=== PATIENT | female | born 1985 | race Two or more races ===

== ENCOUNTER 2023-10-31 06:00 | Outpatient (CLI) | payer OTHER ==
[~2023-10-31] VITALS: Ht 157.5 cm; Wt 72.6 kg
[~2023-10-31 06:00] MED LIST: CAMILA0.35 MG
[2023-10-31 08:58] LABS: URINE APPEARANCE Clear; URINE BILIRRUBIN Negative (NEGATIVE); URINE BLOOD Small; URINE COLOR Yellow; URINE GLUCOSE Negative (NEGATIVE); URINE KETONE Negative (NEGATIVE); URINE LEUKOCYTE Negative; URINE NITRATE Negative; URINE PROTEIN Negative (NEGATIVE); URINE UROBILINOGEN 0.2 E.U./dl
[2023-10-31 08:59] LABS: URINE BACTERIA 30.2 uL (0.0-1933); URINE EPITHELIAL CELLS 6.3 uL (0.0-38.8); URINE RBC 10.8 uL (0.0-20.8)
[2023-10-31 09:03] LABS: URINE WBC 1.5 uL (0.0-23.2)
[2023-10-31 09:22] LABS: HEMATOCRIT 25.6 % (36.0-45.00); MEAN CORPUSCULAR HGB CONC 29.6 g/dl (32.0-36.0); PLATELET COUNT 234 K/uL (150-450); RED BLOOD COUNT 4.73 M/uL (4.00-6.00)
[2023-10-31 09:25] LABS: INR 1.05; PARTIAL THROMBOPLASTIN TIME 26.6 SECONDS (22.0-34.0); PROTHROMBIN TIME 11.4 SECONDS (9.0-11.5)
[2023-10-31 09:39] LABS: MEAN CELL VOLUME 54.2 fL (80.00-100.00); RED CELL DISTRIBUTION WIDTH 19.4 % (11.5-14.5)
[2023-10-31 09:40] LABS: HEMOGLOBIN 7.6 g/dL (12.0-15.00)
[2023-10-31 09:41] VITALS: BP 110/71
[2023-10-31 09:41] LABS: BILIRUBIN TOTAL 0.54 mg/dL (0.3-1.2); CREATININE SERUM 0.75 mg/dL (0.55-1.02); GFR 86.95; GLOBULINA 3.7 G/DL (2.4-3.5); POTASSIUM 3.97 mEq/L (3.5-5.1); TOTAL PROTEIN 7.7 gm/dL (6.4-8.2)
[2023-10-31] MEDS ORDERED: MEGESTROL ACETA40 MG PO (09:41)
[2023-10-31 12:04] LABS: COL EPI 138 SECONDS (82-175)
[2023-11-02] MEDS ORDERED: POVIDONE-IODINE 118 ML BOTT TOP ONE (07:31)
== END 2023-10-31 06:10 | disposition home or self-care (01) ==
LOC: LAB 06:00 → CIR.AMB 11-03 07:54 → EDSTATUS 11-03 12:00 → CIR.AMB 11-03 12:00
PROVIDERS: Internal Medicine Infectious Disease; ATTEND Obstetrics & Gynecology
DX: N93.9 Abnormal uterine and vaginal bleeding, unspecified (principal); Z01.818 Encounter for other preprocedural examination

== ENCOUNTER 2023-10-31 14:37 | Inpatient (IN) | payer OTHER ==
[~2023-10-31] VITALS: Ht 157.5 cm; Wt 74.8 kg
[~2023-10-31 14:37] MED LIST changes: +MEGESTROL ACETA40 MG PO
--- NOTE | 2023-10-31 15:32 | NUR ---
PACIENTE ALERTA Y ORIENTADA X3 REFERIDA POR DR. JAIME. PACIENTE REFIERE SANGRADO VAGINAL SRINI DESDE HACE 3 MESES. PACIENTE VIENE A ABEBA DE EMERGENCIAS CON UN RESULTADO DE HGB DE 7.6. AL MOMENTO DE TRIAGE PACIENTE NO REFIERE SINTOMAS DE DEBILIDAD, MAREOS O DOLOR DE AZIZA. SE LYNDSAY S/V Y SE UBICA.
[2023-10-31] MEDS ORDERED: 0.9 % SODIUM CHLORIDE 500 ML IV ONE (16:30)
[2023-10-31] MEDS ORDERED: FAMOTIDINE/PF 20 MG/2 ML VIAL IV ONE (16:30)
[2023-10-31] MEDS ORDERED: METHYLPREDNISOLONE SOD SUCC 125 MG VIAL IV SCH (16:30)
[2023-10-31] MEDS ORDERED: DIPHENHYDRAMINE HCL 50 MG/ML VIAL 1ML IV SCH (16:30)
[2023-10-31] MEDS ORDERED: DIPHENHYDRAMINE HCL 50 MG/ML VIAL 1ML ONE (16:33)
[2023-10-31] MEDS ORDERED: FAMOTIDINE/PF 20 MG/2 ML VIAL ONE (16:33)
[2023-10-31] MEDS ORDERED: METHYLPREDNISOLONE SOD SUCC 125 MG VIAL ONE (16:33)
[2023-11-02 02:43] LABS: HEMATOCRIT 35.8 % (36.0-45.00); HEMOGLOBIN 11.2 g/dL (12.0-15.00); MEAN CORPUSCULAR HEMOGLOBIN 19.8 pg (27.00-32.0); MEAN CORPUSCULAR HGB CONC 31.1 g/dl (32.0-36.0); PLATELET COUNT 256 K/uL (150-450); RED BLOOD COUNT 5.64 M/uL (4.00-6.00)
[2023-11-02 03:06] LABS: MEAN CELL VOLUME 63.6 fL (80.00-100.00); RED CELL DISTRIBUTION WIDTH 29.4 % (11.5-14.5)
[2023-11-02] MEDS ORDERED: MORPHINE SULFATE 4 MG/ML VIAL IV ONE (09:35)
[2023-11-02] MEDS ORDERED: ONDANSETRON HCL 2 MG/ML VIAL ONE (09:43)
[2023-11-02] MEDS ORDERED: IBUprofen 800 MG TABLET PO SCH (12:00)
[2023-11-02] MEDS ORDERED: POLYETHYLENE GLYCOL 3350 17 GM BLIST.PACK PO SCH (21:00)
[2023-11-03 00:44] LABS: HEMOGLOBIN 10.5 g/dL (12.0-15.00); MEAN CELL VOLUME 64.6 fL (80.00-100.00); MEAN CORPUSCULAR HEMOGLOBIN 19.9 pg (27.00-32.0); MEAN CORPUSCULAR HGB CONC 30.8 g/dl (32.0-36.0); PLATELET COUNT 213 K/uL (150-450); RED BLOOD COUNT 5.26 M/uL (4.00-6.00); RED CELL DISTRIBUTION WIDTH 28.9 % (11.5-14.5)
[2023-11-03] MEDS ORDERED: POLY119PG PO (06:51)
[2023-11-03] MEDS ORDERED: IBUPROFEN800 MG PO (06:51)
== END 2023-11-03 09:29 | disposition home or self-care (01) | DRG 745 ==
LOC: ER 14:39 → OB/GYN 16:54
PROVIDERS: ADMIT Obstetrics & Gynecology; ATTEND Obstetrics & Gynecology
PROC: 30233N1 Transfusion of Nonautologous Red Blood Cells into Peripheral Vein, Percutaneous Approach (ICD-10-PCS; 2023-11-01)
PROC: 0UDB8ZZ Extraction of Endometrium, Via Natural or Artificial Opening Endoscopic (ICD-10-PCS; principal; 2023-11-02 07:00)
DX: N84.0 Polyp of corpus uteri (principal); D64.9 Anemia, unspecified; Z20.822 Contact with and (suspected) exposure to COVID-19

== ENCOUNTER 2023-11-21 08:28 | Inpatient (IN) | payer OTHER ==
[~2023-11-21] VITALS: Ht 157.5 cm; Wt 77.1 kg
[~2023-11-21 08:28] MED LIST changes: +IBUPROFEN800 MG PO; +POLY119PG PO
[2023-11-21] MEDS ORDERED: 0.9 % SODIUM CHLORIDE 1,000 ML IV STA (09:33)
[2023-11-21 10:31] LABS: PH,URINE 5.5 (5.0-8.0); URINE APPEARANCE Clear; URINE BILIRRUBIN Negative (NEGATIVE); URINE BLOOD Large; URINE COLOR Yellow; URINE GLUCOSE Negative (NEGATIVE); URINE KETONE Negative (NEGATIVE); URINE LEUKOCYTE Trace; URINE NITRATE Negative; URINE PROTEIN Negative (NEGATIVE)
[2023-11-21 10:32] LABS: URINE BACTERIA 47.8 uL (0.0-1933); URINE EPITHELIAL CELLS 9.8 uL (0.0-38.8); URINE RBC 260.7 uL (0.0-20.8); URINE WBC 8.4 uL (0.0-23.2)
[2023-11-21 10:40] LABS: URINE CAST 0.15 uL (0.0-1.40)
[2023-11-21 10:52] LABS: INR 1.07; PARTIAL THROMBOPLASTIN TIME 29.9 SECONDS (22.0-34.0); PROTHROMBIN TIME 11.6 SECONDS (9.0-11.5)
[2023-11-21 11:03] LABS: CREATININE SERUM 0.72 mg/dL (0.55-1.02); GFR 91.14; POTASSIUM 3.62 mEq/L (3.5-5.1)
[2023-11-21 11:24] LABS: HEMATOCRIT 34.7 % (36.0-45.00); MEAN CORPUSCULAR HGB CONC 31.6 g/dl (32.0-36.0); PLATELET COUNT 339 K/uL (150-450); RED BLOOD COUNT 5.23 M/uL (4.00-6.00)
[2023-11-21 11:28] LABS: MEAN CELL VOLUME 66.2 fL (80.00-100.00); RED CELL DISTRIBUTION WIDTH 31.6 % (11.5-14.5)
[2023-11-21 14:20] VITALS: BP 118/63
[2023-11-21 17:48] VITALS: BP 113/75
[2023-11-22 01:00] VITALS: BP 105/61
[2023-11-22 07:43] VITALS: BP 101/64
[2023-11-22] MEDS ORDERED: CEFOXITIN SODIUM 2,000 MG VIAL IV SCH (08:45)
[2023-11-22 14:32] VITALS: BP 110/57
[2023-11-22] MEDS ORDERED: SOD FERRIC GLUC COMPLX/SUCROSE 62.5 MG in 0.9 % SODIUM CHLORIDE 50 ML IV SCH (17:12)
[2023-11-22] MEDS ORDERED: FOLIC ACID 1 MG TABLET PO SCH (17:12)
[2023-11-22] MEDS ORDERED: FAMOtidine 20 MG TABLET PO SCH (17:12)
[2023-11-22] MEDS ORDERED: SOD FERRIC GLUC COMPLX/SUCROSE 62.5 MG/5 ML AMPUL IV ONE (19:00)
[2023-11-23 01:14] VITALS: BP 116/75
[2023-11-23] MEDS ORDERED: CEFOXITIN SODIUM 2,000 MG VIAL IV ONE ×3 (07:44→11:39)
[2023-11-23] MEDS ORDERED: CEFOXITIN SODIUM 2,000 MG in DEXTROSE 5 % IN WATER 100 ML IV SCH (12:00)
[2023-11-23] MEDS ORDERED: MEPERIDINE HCL/PF 50 MG/ML VIAL IV SCH (12:00)
[2023-11-23] MEDS ORDERED: PROMETHAZINE HCL 25 MG/ML AMPUL IV SCH (12:00)
[2023-11-23 12:12] VITALS: BP 124/80
[2023-11-23 12:18] VITALS: O2SAT 100
[2023-11-23 15:48] VITALS: BP 122/79
[2023-11-23 18:11] LABS: HEMATOCRIT 33.8 % (36.0-45.00); HEMOGLOBIN 10.4 g/dL (12.0-15.00); MEAN CORPUSCULAR HEMOGLOBIN 20.3 pg (27.00-32.0); MEAN CORPUSCULAR HGB CONC 30.9 g/dl (32.0-36.0); RED BLOOD COUNT 5.15 M/uL (4.00-6.00)
[2023-11-23 18:18] LABS: MEAN CELL VOLUME 65.6 fL (80.00-100.00); PLATELET COUNT 286 K/uL (150-450)
[2023-11-24 01:00] VITALS: BP 121/78
[2023-11-24] MEDS ORDERED: SIMETHICONE 125 MG CAPSULE PO SCH (05:00)
[2023-11-24] MEDS ORDERED: GABAPENTIN 300 MG CAPSULE PO SCH (05:00)
[2023-11-24] MEDS ORDERED: IBUprofen 800 MG TABLET PO SCH (06:00)
[2023-11-24 08:38] VITALS: BP 101/68
[2023-11-24] MEDS ORDERED: POLYETHYLENE GLYCOL 3350 17 GM BLIST.PACK PO SCH (09:00)
[2023-11-24 12:55] VITALS: BP 105/66
[2023-11-24 17:40] VITALS: BP 111/69
[2023-11-25] VITALS: BP 104/71
[2023-11-25 07:03] LABS: HEMATOCRIT 25.1 % (36.0-45.00); MEAN CORPUSCULAR HEMOGLOBIN 21.1 pg (27.00-32.0); MEAN CORPUSCULAR HGB CONC 31.9 g/dl (32.0-36.0); PLATELET COUNT 250 K/uL (150-450); RED BLOOD COUNT 3.78 M/uL (4.00-6.00); RED CELL DISTRIBUTION WIDTH 31.9 % (11.5-14.5)
[2023-11-25 07:04] LABS: MEAN CELL VOLUME 66.4 fL (80.00-100.00)
[2023-11-25 08:00] VITALS: BP 106/72
[2023-11-25 08:45] LABS: HEMATOCRIT 27.6 % (36.0-45.00); MEAN CORPUSCULAR HEMOGLOBIN 21.4 pg (27.00-32.0); MEAN CORPUSCULAR HGB CONC 32.6 g/dl (32.0-36.0); PLATELET COUNT 273 K/uL (150-450); RED BLOOD COUNT 4.19 M/uL (4.00-6.00)
[2023-11-25 08:48] LABS: MEAN CELL VOLUME 65.8 fL (80.00-100.00); RED CELL DISTRIBUTION WIDTH 31.5 % (11.5-14.5)
[2023-11-25] MEDS ORDERED: RINGERS SOLUTION,LACTATED 1,000 ML IV SCH (09:45)
[2023-11-25] MEDS ORDERED: SOD FERRIC GLUC COMPLX/SUCROSE 125 MG in 0.9 % SODIUM CHLORIDE 100 ML IV SCH (09:45)
[2023-11-25 19:06] VITALS: BP 111/73
[2023-11-26] VITALS: BP 106/60
[2023-11-26] MEDS ORDERED: GABAPENTIN300 MG PO (06:54)
[2023-11-26] MEDS ORDERED: SIMETHICONE125 M1 PO (06:55)
[2023-11-26] MEDS ORDERED: FOLIC ACID1 MG PO (06:55)
[2023-11-26] MEDS ORDERED: POLY119PG PO (06:55)
[2023-11-26] MEDS ORDERED: IBUPROFEN800 MG PO (06:55)
[2023-11-26 08:50] VITALS: BP 110/73
== END 2023-11-26 10:04 | disposition home or self-care (01) | DRG 743 ==
LOC: ER 08:30 → OB/GYN 12:13 → O/R 12:13 → OB/GYN 12:52
PROVIDERS: Emergency Medicine; ADMIT Obstetrics & Gynecology; ATTEND Obstetrics & Gynecology
PROC: 0UT70ZZ Resection of Bilateral Fallopian Tubes, Open Approach (ICD-10-PCS; 2023-11-23)
PROC: 0UT10ZZ Resection of Left Ovary, Open Approach (ICD-10-PCS; 2023-11-23)
PROC: 0UT90ZZ Resection of Uterus, Open Approach (ICD-10-PCS; principal; 2023-11-23 07:00)
DX: D25.1 Intramural leiomyoma of uterus (principal); D25.2 Subserosal leiomyoma of uterus; N80.203 Endometriosis of bilateral fallopian tubes, unspecified depth; N80.102 Endometriosis of left ovary, unspecified depth; D50.0 Iron deficiency anemia secondary to blood loss (chronic); Z20.822 Contact with and (suspected) exposure to COVID-19

== ENCOUNTER → 2023-11-28 | Emergency (ER) | payer OTHER ==
[~2023-11-28] VITALS: Ht 157.5 cm; Wt 77.1 kg
[~2023-11-28] MED LIST changes: +0.9 % SODIUM CHLORIDE 1,000 ML IV ONE; +FAMOTIDINE/PF 20 MG/2 ML VIAL ONE; +FAMOtidine 10 MG/ML (4ML VIAL) IV ONE; +FOLIC ACID1 MG PO; +GABAPENTIN300 MG PO; +SIMETHICONE125 M1 PO
[2023-11-28 12:29] LABS: HEMATOCRIT 29.9 % (36.0-45.00); HEMOGLOBIN 9.6 g/dL (12.0-15.00); MEAN CORPUSCULAR HEMOGLOBIN 21.3 pg (27.00-32.0); MEAN CORPUSCULAR HGB CONC 32.1 g/dl (32.0-36.0); PLATELET COUNT 312 K/uL (150-450)
[2023-11-28 12:49] LABS: MEAN CELL VOLUME 66.5 fL (80.00-100.00); RED CELL DISTRIBUTION WIDTH 31.8 % (11.5-14.5)
[2023-11-28 12:50] LABS: ERYTHROCYTE SEDIMENTATION RATE 35 mm/hr
[2023-11-28 13:04] LABS: ALBUMIN 3.8 gm/dL (3.4-5.0); BILIRUBIN TOTAL 0.56 mg/dL (0.3-1.2); CREATININE SERUM 0.64 mg/dL (0.55-1.02); GFR 104.41; GLOBULINA 3.7 G/DL (2.4-3.5); POTASSIUM 4.15 mEq/L (3.5-5.1); TOTAL PROTEIN 7.5 gm/dL (6.4-8.2)
[2023-11-28 13:12] LABS: C-REACTIVE PROTEIN 4.44 MG/DL (0.00-0.29)
== END | disposition left against medical advice (07) ==
LOC: ER 09:40
PROVIDERS: General Practice
DX: D64.9 Anemia, unspecified (principal); Z90.710 Acquired absence of both cervix and uterus; I10 Essential (primary) hypertension; Z91.018 Allergy to other foods

== ENCOUNTER 2024-10-14 05:25 | Emergency (ER) | payer OTHER ==
[~2024-10-14] VITALS: Ht 167.6 cm; Wt 77.1 kg
[~2024-10-14 05:25] MED LIST changes: -0.9 % SODIUM CHLORIDE 1,000 ML IV ONE; -FAMOTIDINE/PF 20 MG/2 ML VIAL ONE; -FAMOtidine 10 MG/ML (4ML VIAL) IV ONE
[2024-10-14] MEDS ORDERED: ACETAMINOPHEN 500 MG GEL..CAP PO ONE (05:35)
[2024-10-14] MEDS ORDERED: GUAIFENESIN 200 MG/10 ML BLIST.PACK PO STA (06:38)
[2024-10-14] MEDS ORDERED: LACTOBACILLUS ACIDOPHILUS 1 CAP CAP PO STA (06:38)
[2024-10-14] MEDS ORDERED: GUAIFENESIN 200 MG/10 ML BLIST.PACK PO ONE (07:10)
[2024-10-14] MEDS ORDERED: LACTOBACILLUS ACIDOPHILUS 1 CAP CAP PO ONE (07:15)
[2024-10-14 07:50] LABS: BASO % 0.5 % (0.1-1.2); EOS # 0.16 (0.04-0.54); EOS % 2.8 % (0.7-7.0); LYMPH # 0.33 (1.18-3.74); LYMPH % 5.7 % (19.3-53.1); MEAN PLATELET VOLUME 10.20 fl (9.4-12.4); MONO # 0.82 (0.24-0.82); NEUT # 4.43 (1.56-6.13); NEUT % 76.5 % (34.0-71.1); RED CELL DISTRIBUTION WIDTH 13.2 % (11.6-14.4)
[2024-10-14 07:51] LABS: MONO % 14.2 % (4.7-12.5)
[2024-10-14 08:45] LABS: COVID-19 AG POSITIVE (NEGATIVE)
[2024-10-14] MEDS ORDERED: PAXLOVID 300-11 EAC1 PO (08:54)
[2024-10-14] MEDS ORDERED: TUSNEL LIQUID178 ML PO (08:54)
== END 2024-10-14 09:29 | disposition home or self-care (01) ==
LOC: ER 05:33
PROVIDERS: General Practice
DX: U07.1 COVID-19 (principal); Z91.018 Allergy to other foods

== ENCOUNTER 2024-11-19 20:13 | Emergency (ER) | payer OTHER ==
[~2024-11-19] VITALS: Ht 157.5 cm; Wt 90.7 kg
[~2024-11-19 20:13] MED LIST changes: +PAXLOVID 300-11 EAC1 PO; +TUSNEL LIQUID178 ML PO
[2024-11-19] MEDS ORDERED: HYDROXYZINE HCL25 MG PO (22:45)
== END 2024-11-19 22:59 | disposition home or self-care (01) ==
LOC: ER 20:13
DX: G56.02 Carpal tunnel syndrome, left upper limb (principal); Z88.8 Allergy status to other drugs, medicaments and biological substances

== ENCOUNTER 2024-12-09 08:51 | Emergency (ER) | payer OTHER ==
[~2024-12-09] VITALS: Ht 157.5 cm; Wt 93.0 kg
[~2024-12-09 08:51] MED LIST changes: +HYDROXYZINE HCL25 MG PO
[2024-12-09 10:43] LABS: BASO % 0.9 % (0.1-1.2); EOS # 0.03 (0.04-0.54); EOS % 0.9 % (0.7-7.0); LYMPH # 0.52 (1.18-3.74); LYMPH % 16.0 % (19.3-53.1); MEAN PLATELET VOLUME 9.60 fl (9.4-12.4); MONO # 0.51 (0.24-0.82); NEUT # 2.16 (1.56-6.13); NEUT % 66.5 % (34.0-71.1); RED CELL DISTRIBUTION WIDTH 12.9 % (11.6-14.4)
[2024-12-09 10:44] LABS: MONO % 15.7 % (4.7-12.5)
[2024-12-09 11:15] LABS: ALT/SGPT 44.0 U/L (12-78); AST/SGOT 20.0 U/L (15-37); BILIRUBIN TOTAL 0.42 mg/dL (0.3-1.2); BUN CREA RATIO 14.0 (7.0-25.0); CREATININE SERUM 0.9 mg/dL (0.55-1.02); GFR 70.07; GLOBULINA 4.1 G/DL (2.4-3.5); GLUCOSE FASTING 130.0 mg/dL (65-100); OSMOLALITY SERUM 283.0 MOSM/KG (275-295)
[2024-12-09] MEDS ORDERED: ACETAMINOPHEN500 M1 PO (14:06)
[2024-12-09] MEDS ORDERED: GILTUSS COUGH-118 M1 PO (14:06)
== END 2024-12-09 14:58 | disposition home or self-care (01) ==
LOC: ER 08:52
PROVIDERS: Preventive Medicine Public Health & General Preventive Medicine
DX: B34.9 Viral infection, unspecified (principal); R05.9 Cough, unspecified; R50.9 Fever, unspecified; R51.9 Headache, unspecified; Z91.018 Allergy to other foods